=== PATIENT | male | born 1955 | race American Indian/Alaskan Native ===

== ENCOUNTER 2017-09-14 07:44 | Outpatient (CLI) | payer BC ==
--- NOTE | 2017-09-14 08:06 | XRay Report ---
XRAY CHEST TWO VIEWS: 09/14/17 07:44:00 CLINICAL: The COMPARISON: None FINDINGS: Normal heart and pulmonary vasculature. The lungs are normally expanded and clear. No airspace disease or pleural effusion.The bones and soft tissues are unremarkable. IMPRESSION: Normal chest.
== END 2017-09-14 07:45 | disposition home or self-care (01) ==
LOC: SPVIMAG 07:44
DX: R05 Cough (principal)
CPT/HCPCS: 71046